=== PATIENT | male | born 1965 | race Caucasian/White ===

== ENCOUNTER → 2017-04-17 | Outpatient (CLI) | payer OTHER ==
--- NOTE | 2017-04-17 13:26 | DI ---
XR ELBOW COMPLETE MIN 3VW,04/17/2017 12:36 PM: Clinical History: Left elbow pain Previous Exam: None at this facility. Findings: 3 views of the left elbow are obtained, and demonstrate anatomic alignment without fractures. Surroun ding soft tissues are unremarkable Impression: Normal left elbow.
== END ==
LOC: MOB RAD 12:42
PROVIDERS: ATTEND Physician Assistant
DX: M25.522 Pain in left elbow (principal); X50.0XXA Overexertion from strenuous movement or load, initial encounter; Y93.89 Activity, other specified; Y99.0 Civilian activity done for income or pay
CPT/HCPCS: 73080